=== PATIENT | female | born 1965 | race Two or more races ===

== ENCOUNTER 2020-11-04 07:45 | Outpatient (CLI) | payer OTHER | END 2020-11-04 07:53 | disposition home or self-care (01) | LOC: LAB 07:45 | PROVIDERS: ATTEND Specialist | DX: E78.2 Mixed hyperlipidemia (principal); I11.9 Hypertensive heart disease without heart failure; D51.8 Other vitamin B12 deficiency anemias; E03.8 Other specified hypothyroidism; C73 Malignant neoplasm of thyroid gland ==

== ENCOUNTER 2021-01-05 10:03 | Outpatient (CLI) | payer OTHER | END 2021-01-05 10:14 | disposition home or self-care (01) | LOC: RAD 10:03 | PROVIDERS: ATTEND Neurological Surgery | DX: M48.02 Spinal stenosis, cervical region (principal) ==

== ENCOUNTER 2021-03-22 06:57 | Outpatient (CLI) | payer OTHER | END 2021-03-22 06:58 | disposition home or self-care (01) | LOC: LAB 06:57 | PROVIDERS: ATTEND Specialist | DX: D50.8 Other iron deficiency anemias (principal); E78.2 Mixed hyperlipidemia ==